=== PATIENT | female | born 1990 | race Caucasian/White ===

== ENCOUNTER 2019-02-13 14:58 | Emergency (ER) | payer MEDICAID ==
[~2019-02-13] VITALS: Ht 165.1 cm; Wt 43.5 kg
[2019-02-13 17:55] VITALS: BP 111/78
== END 2019-02-13 17:57 | disposition home or self-care (01) ==
LOC: ER 14:58
DX: M25.562 Pain in left knee (principal); Z59.0 Homelessness
CPT/HCPCS: 99282